=== PATIENT | female | born 1945 | race Caucasian/White ===

== ENCOUNTER → 2017-07-19 | Outpatient (CLI) | payer MEDICARE, OTHER ==
[~2017-07-19] MED LIST: ASPIRIN PO; CALCIUM PO; CENTRUM SILVER PO; CLONIDINE PO; DICLOFENAC PO; DIOVAN HCT 160-1 TAB PO; EFFEXOR XR PO; FISH OIL 1,0001 CAP PO; FLEXERIL PO; IRON1 TA1 PO; MOBIC PO; MUCINEX PO; MULTI-VITAMIN1 TAB PO; NORCO 10/325 TA1 TAB PO; OMEPRAZOLE40 MG PO; OYSTER CALCIUM500 MG PO; SEROQUEL PO; SINGULAIR PO; SYNTHROID PO; VIT B-12 PO; VIT E PO; ZOCOR PO
--- NOTE | ~2017-07-19 | MY29 ---
[facility] A Service of [facility] & [facility] RADIOLOGY TEXT RESULTS PATIENT: SANDRO ESCOBAR LOCATION: [facility] : 45 UNIT #: [id number] AGE: [address]: Emilia Wilkerson MD SEX: F ORDER DR: [id number] [facility]. [place], [place] [address] [id number] O MR#: [id number] Acc #: [id number] NAME: SANDRO ESCOBAR : 1945 SEX: F STUDY DATE/TIME: 07/19/2017 7:50 UNIT: [facility] ROOM: STUDY DESCRIPTION: MY HAM SCREENING W/ CAD BILAT Attending Physician: Emilia Wilkerson Referring Physician: Emilia Wilkerson Ordering Physician: Emilia Wilkerson Primary Care Physician: Emilia Wilkerson MEDICAL IMAGING REPORT This report is preliminary unless electronic signature is present EXAM Bilateral digital screening mammogram CAD COMPARISON February 24, 2012, October 13, 2010, February 06, 2009, and November 04, 2006. INDICATIONS Breast cancer screening. 72-year-old asymptomatic female. No personal or family history of breast cancer. FINDINGS There are scattered fibroglandular densities. Benign capsular calcifications are noted along both subglandular silicone breast implants. There is stable mild contour irregularity of the implants that may represent herniation. No extracapsular silicone is seen. Arterial calcifications are noted in both breasts. No suspicious findings are seen in either breast. IMPRESSION 1. No mammographic evidence of malignancy. 2. Continued annual screen mammography and clinical breast exam are recommended. 3. Grossly intact silicone breast implants. Patients over the age of 40 are entered into a reminder system with target due date for the next mammogram. A result letter will also be sent to the patient. BIRADS: 2 Benign finding. Dictated by... Momo Hanson M.D. [facility] A Service of [facility] & [facility] RADIOLOGY TEXT RESULTS PATIENT: SANDRO ESCOBAR LOCATION: [facility] : 45 UNIT #: [id number] AGE: [address]: Emilia Wilkerson MD SEX: F ORDER DR: THIS IS AN ELECTRONICALLY VERIFIED REPORT Momo Hanson M.D. at 07/22/2017 10:01 PM Jossie TD: 07/19/2017 14:31 JOB #: [id number] MEDICAL IMAGING REPORT Page 1 of 1 COPY
== END | disposition home or self-care (01) ==
LOC: CWCC 07:20
DX: Z12.31 Encounter for screening mammogram for malignant neoplasm of breast (principal); Z98.82 Breast implant status
CPT/HCPCS: G0202